=== PATIENT | male | born 1980 | race Caucasian/White ===

== ENCOUNTER 2023-09-28 16:56 | Day surgery (SDC) | payer MEDICARE ==
[2023-09-28] MEDS ORDERED: Decadron 4 MG INJ IV ONE (16:57)
[2023-09-28] MEDS ORDERED: Sodium Chloride 0.9(Preservative Free) 10 ML IJ ONE (16:57)
[2023-09-28] MEDS ORDERED: LIDOCAINE HCL 1% 50 MG/5 ML VL PF IJ ONE (16:57)
[2023-09-28] MEDS ORDERED: Lactated Ringers 1,000 ML IV ONE (18:01)
--- NOTE | 2023-09-28 19:09 | XRAY ---
Indication: Cervical CAITY. Intraoperative fluoroscopy provided for 21 seconds. 2 digital spot images submitted for interpretation demonstrates posterior needle tip projecting posterior to cervical thoracic junction. Small amount of contrast injected for needle tip placement. Correlate with intraoperative findings/report.
--- NOTE | 2023-09-29 08:48 | XRAY ---
21 seconds of fluoroscopy was used in surgery for a cervical CAITY.
== END 2023-09-28 18:51 | disposition home or self-care (01) ==
LOC: SDC-PAIN 16:56
PROVIDERS: ATTEND Psychiatry & Neurology Pain Medicine
DX: M54.12 Radiculopathy, cervical region (principal)
CPT/HCPCS: 62321; 72040; 77003; J1100; J2001; Q9966

== ENCOUNTER 2023-11-02 15:13 | Day surgery (SDC) | payer MEDICARE ==
[2023-11-02] MEDS ORDERED: BUPIVACAINE 0.5% VIAL IJ ONE (15:14)
[2023-11-02] MEDS ORDERED: Depo-Medrol 40 MG/ML IM ONE (15:14)
[2023-11-02] MEDS ORDERED: LIDOCAINE HCL 1% 50 MG/5 ML VL PF IJ ONE (15:14)
--- NOTE | 2023-11-02 20:33 | XRAY ---
Indication: Right knee injection. Intraoperative fluoroscopy provided for 13 seconds. Single digital spot image submitted for interpretation demonstrates needle tip projecting over right femur intercondylar notch. Small amount of contrast injected for needle tip placement. Correlate with intraoperative findings/report.
--- NOTE | 2023-11-03 08:41 | XRAY ---
13 seconds of fluoroscopy in surgery was used for a right intra-articular knee.
== END 2023-11-02 17:21 | disposition home or self-care (01) ==
LOC: SDC-PAIN 15:13
PROVIDERS: ATTEND Psychiatry & Neurology Pain Medicine
DX: M17.11 Unilateral primary osteoarthritis, right knee (principal)
CPT/HCPCS: 20610; 73560; 77002; J1010; J2001; Q9966; J1030

== ENCOUNTER 2024-10-10 15:54 | Day surgery (SDC) | payer MEDICARE ==
[2024-10-10] MEDS ORDERED: LIDOCAINE HCL 1% AMPUL 5 ML IJ ONE (15:55)
[2024-10-10] MEDS ORDERED: BUPIVACAINE 0.5% VIAL IJ ONE (15:55)
[2024-10-10] MEDS ORDERED: Depo-Medrol 40 MG/ML IM ONE (15:55)
--- NOTE | 2024-10-10 18:24 | XRAY ---
Indication: Right shoulder and subacromial bursa injection. Intraoperative fluoroscopy provided for 14 seconds. 2 digital spot image submitted for interpretation demonstrates needle tip projecting over right glenohumeral joint superiorly. Second needle tip subacromial. Small amount of contrast injected for needle tip placement. Correlate with intraoperative findings/report.
--- NOTE | 2024-10-11 09:18 | XRAY ---
14 seconds of fluoroscopy was used in surgery for a right intra-articular shoulder and subacromial bursa injection.
== END 2024-10-10 18:10 | disposition home or self-care (01) ==
LOC: SDC-PAIN 15:54
PROVIDERS: ATTEND Psychiatry & Neurology Pain Medicine
DX: M19.011 Primary osteoarthritis, right shoulder (principal); M75.51 Bursitis of right shoulder
CPT/HCPCS: 20610; 73030; 77002; Q9966